=== PATIENT | male | born 1965 | race Caucasian/White ===

== ENCOUNTER 2017-10-14 12:00 | Day surgery (SDC) | payer OTHER ==
[2017-10-14 12:38] VITALS: BMI 33.3
--- NOTE | 2017-10-14 12:52 | CP.SDSHP ---
Same Day Surgery H & P - History Proposed Procedure: colonoscopy - Allergies Allergies: Allergies No Known Allergies Allergy (Verified 10/14/17 12:38) - Date & Time Date: 10/14/17 Time: 12:52 Short Stay Discharge - Short Stay Discharge Admitting Diagnosis/Reason for Visit: ENCOUNTER FOR SCREENING FOR MALIGNANT NEOPLASM OF Disposition: HOME/ ROUTINE
[2017-10-14] MEDS ORDERED: Lactated Ringer's 500 ML IV SCH (13:45)
[2017-10-14] MEDS ORDERED: Propofol 10 mg/ml Inj (20 ML) ONE (13:45)
[2017-10-14] MEDS ORDERED: Lactated Ringer's 1,000 ML IV ONE (14:02)
[2017-10-14 14:39] VITALS: TEMP 98
[2017-10-14 15:11] VITALS: RESP 12; O2SAT 99
[2017-10-14 15:13] VITALS: BP 112/67; PULSE 70
== END 2017-10-14 15:45 | disposition home or self-care (01) ==
LOC: C.ENDO 12:00
PROVIDERS: ATTEND Colon & Rectal Surgery
DX: Z12.11 Encounter for screening for malignant neoplasm of colon (principal); Z80.0 Family history of malignant neoplasm of digestive organs; D12.5 Benign neoplasm of sigmoid colon; K64.8 Other hemorrhoids
CPT/HCPCS: 45385; 88305; J2704; J7120